=== PATIENT | female | born 1960 | race Caucasian/White ===

== ENCOUNTER 2023-04-01 19:25 | Emergency (ER) | payer BC, SELFPAY ==
[2023-04-01 19:45] VITALS: BP 144/107
[2023-04-01 20:09] LABS: % Basophils 0.2 % (0-2); % Eosinophils 0.5 % (0-6); % Immature Granulocytes 0.3 % (0-0.5); % Lymphocytes 8.2 % (20.5-51.1); % Monocytes 8.1 % (1.7-9.3); % Neutrophils 82.7 % (42.2-75.2); Absolute Eosinophils 0.1 10^3/uL (0-0.7); Absolute Lymphocytes 1.1 10^3/uL (1.2-3.4); Absolute Monocytes 1.1 10^3/uL (0.1-0.6); Absolute Neutrophils 10.9 10^3/uL (1.4-6.5); Hematocrit 45.6 % (37.0-47.0); Hemoglobin 14.9 g/dL (12.0-16.0); Mean Corp Hgb Conc. 32.7 g/dL (33.0-37.0); Mean Corpuscular Hgb 27.4 pg (27.0-31.0); Mean Platelet Volume 11.4 fL (7.4-10.4); Nucleated Red Blood Cells % 0 %; Platelet Count 250 10^3/uL (130-400); Red Blood Cell Count 5.43 10^6/uL (4.20-5.40); Red Cell Dist. Width 14.6 % (11.5-14.5); White Blood Cell Count 13.2 10^3/uL (4.8-10.8)
[2023-04-01 20:23] LABS: ALT (SGPT) 29 U/L (0-35); AST (SGOT) 26 U/L (14-36); Albumin 4.6 g/dl (3.5-5.0); Alkaline Phosphatase 122 U/L (38-126); Blood Urea Nitrogen 10 mg/dl (7-17); Calcium 9.4 mg/dl (8.4-10.2); Carbon Dioxide 19 mmol/L (22-30); Chloride 107 mmol/L (98-107); Glucose 118 mg/dl (70-99); Potassium 4.2 mmol/L (3.5-5.1); Sodium 136 mmol/L (135-145); Total Bilirubin 0.7 mg/dl (0.2-1.3); eGFR > 60.00
[2023-04-01] MEDS: PROTONIX IV 40 MG IV (22:21)
[2023-04-01] MEDS: ZOFRAN 4 MG IV (22:22)
[2023-04-01] MEDS: NSS 1000 IV (22:23)
--- NOTE | 2023-04-01 22:23 | ED.GENMED ---
History of Present Illness
General
Chief Complaint: Abdominal Symptoms
Source: patient
Exam Limitations: none
Time Seen by Provider: 04/01/23 21:34
Travel History
Have you had any contact with someone who has COVID-19?: Yes
Comment: self
Do you have any symptoms of coronavirus? Fever > 100 degrees, chills, cough, shortness of breath, sore throat, loss of taste or smell, muscle aches, or headache?: Yes
Symptoms:: cough
History of Present Illness
History of Present Illness:
This is a 63 year old female that comes in with c/o vomiting. States that she was diagnosed with COVID yesterday and given Paxlovid. States that she has not stopped vomiting since the took this. States that she has had chills, abd pain, nausea,
vomiting, diarrhea. Denies any fever, chest pain, SOB, headache, dizziness, urinary burning.
Past History
Past History
ED Past Medical History: HTN, Hyperthyroidism, Psychiatric (Anxiety) and Other (Ovarian cyst, UTI, Uterine Fibroid, Anemia, )
ED Past Surgical History: Cholecystectomy, Orthopedic (Left wrist ganglion), Tonsilectomy (and adenoids) and Other (left breast Biopsy)
Social History
Tobacco: Non-smoker
Alcohol: Occasional
Drug: None
Personal:
Living: with family
Employment: Employed
Review of Systems
Review of Systems
All Other Systems: ROS reviewed and negative except as documented in HPI and ROS
Constitutional: Reports chills; Denies fever
EENT: Reports no symptoms
Respiratory: Reports no symptoms; Denies cough or trouble breathing
Cardiac: Reports no symptoms; Denies chest pain
ABD/GI: Reports abdominal pain, nausea, vomiting and diarrhea
: Reports no symptoms; Denies dysuria, frequency or urgency
Musculoskeletal: Reports no symptoms
Skin: Reports no symptoms
Neurological: Reports no symptoms; Denies dizzy or headache
Psychiatric: Reports no symptoms
Phy Exam
General Physical Exam
General Presentation: no apparent distress
General age: appears stated age
General Skin: warm and dry
General Habitus: normal
General Mental: alert
General Hydration: dry mucous membranes
ENT Exam
ENT Exam: TM's normal, pharynx normal and neck supple
Eye Exam
Eye Exam: EOMI
Cardiovascular Exam
Cardiovascular Exam: regular rate/rhythm, no edema, no murmur and normal peripheral pulses
Pulmonary Exam
Pulmonary Exam: lungs clear, no respiratory distress, no rales, chest non tender, no crackles, no rhonchi, no wheezing and no cough
Gastrointestinal Exam
Gastrointestinal Exam: normal bowel sounds, soft, no organomegaly, no pulsatile mass, non distended and tender (Epigastric area with palpation)
Musculoskeletal Exam
Musculoskeletal Exam: full ROM and no edema
Skin Exam
Skin Exam: normal color, warm/dry, no rash and no petechia
Psychiatric Exam
Psychiatric Exam: normal mood/affect
Course
Orders/Labs/Results
Orders:
Orders
04/01/23 19:54
Complete Blood Count/With Diff Urgent
Comprehensive Metabolic Panel Urgent
Lipase Urgent
Comment: ADD ON
04/01/23 22:19
Ondansetron Injectable [Zofran] 4 mg .ROUTE .STK-MED ONE
Pantoprazole [Protonix IV] 40 mg .ROUTE .STK-MED ONE
04/01/23 22:21
Pantoprazole [Protonix IV] 40 mg IV NOW STA
04/01/23 22:22
0.9% Sodium Chloride 1000 ml [Nss] 1,000 ml IV BOLUS
Ondansetron Injectable [Zofran] 4 mg IV NOW STA
Ondansetron Injectable [Zofran] 4 mg IV NOW STA
Pantoprazole [Protonix IV] 40 mg IV NOW STA
04/01/23 22:23
Add On- LAB Urgent
Tests Added?: Lipase
0.9% Sodium Chloride 1000 ml [Nss] 1,000 ml IV BOLUS
Abnormal Lab Results
04/01/23
19:54
WBC 13.2 H 10^3/uL
(4.8-10.8)
RBC 5.43 H 10^6/uL
(4.20-5.40)
MCHC 32.7 L g/dL
(33.0-37.0)
RDW 14.6 H %
(11.5-14.5)
MPV 11.4 H fL
(7.4-10.4)
Absolute Neuts (auto) 10.9 H 10^3/uL
(1.4-6.5)
Absolute Lymphs (auto) 1.1 L 10^3/uL
(1.2-3.4)
Absolute Monos (auto) 1.1 H 10^3/uL
(0.1-0.6)
Neutrophils % 82.7 H %
(42.2-75.2)
Lymphocytes % 8.2 L %
(20.5-51.1)
Carbon Dioxide 19 L mmol/L
(22-30)
Creatinine 0.5 L mg/dL
(0.6-1.0)
Glucose 118 H mg/dl
(70-99)
04/01/23 19:54
04/01/23 19:54
Leukocytosis, carbon dioxide slightly low. Glucose nonfasting,
Vital Signs
Initial and Last Documented VS:
Initial Vital Signs
Temp Pulse Resp Pulse Ox
97.9 F 142 19 97
04/01/23 19:43 04/01/23 19:43 04/01/23 19:43 04/01/23 19:43
Last Documented Vital Signs
Temp Pulse Resp BP Pulse Ox
97.9 F 142 19 144/107 97
04/01/23 19:43 04/01/23 19:43 04/01/23 19:43 04/01/23 19:45 04/01/23 19:43
MDM/Problems Addressed
Differential Diagnosis Includes:
Reaction to Paxlovid
MDM/Problems Addressed:
This is a 63 year old female that comes in with c/o vomiting. States that she was diagnosed with COVID yesterday and that she was placed on Paxlovid. States that she has not stopped vomiting since she took the medication.
Will check labs, give patient IV fluids, Antiemetics. Will have patient stop the Paxlovid.
Back into see patient. patient states that she is feeling better. Will have patient increase her water intake. Will give her a prescription for Zofran and stay off the Paxlovid. Patient to return with any concerns.
Chronic conditions affecting care:
NA
Acute Exacerbation and/or Progression of Chronic Illness: Other (COVID)
*Pulse Oximetry
Patient hypoxic: no
*EKG
Interpreted by ED Provider?: NA
Rate: EKG- N/A
*Supply Specialist Interpretation
Rate: Supply Specialist- N/A
*Critical Care Note
Total Time (30-74mins, 75-104mins- exclusive of procedures): Not Applicable
ED Attending Note
-
Portions of this chart may have been created with voice recognition software.� Occasional wrong word or��sound alike� substitutions may have occurred due to the inherent limitations of voice recognition software.
Discharge Plan
Departure
Patient Disposition: Home (Routine Discharge)
Date of Disposition: 04/01/23
Time of Disposition: 23:53
Patient with high blood pressure during this ER visit?: Yes
Condition: Good
Covid-19: Not Applicable
Discharge Problem:
Nausea & vomiting
Instructions: Nausea and Vomiting, Adult (DC), BLOOD PRESSURE
Prescriptions:
New
ondansetron 4 mg tablet,disintegrating
4 mg PO Q8H PRN (Reason: nausea and vomiting) Qty: 7 0RF
No Action
naproxen sodium [Aleve] 220 MG tablet
2 tab PO DAILY
thyroid (pork) [[place] Thyroid] 60 MG tablet
60 mg PO DAILY
vitamin C-biotin [[id number] (vit C-biotin)] 1 EACH tablet,chewable
2 ea PO DAILY
Power Zinc
5 mg PO DAILY
Patient Comments:
with vit c 90 mg
Saline Nasal [place]
2 sprays inhalation DAILY
Vitamin B12:
3,000 mcg PO DAILY
Vitamin C:
74 mg PO DAILY
Vitamin D3:
75 mcg PO DAILY
ondansetron 4 mg tablet,disintegrating
4 mg PO Q8H PRN (Reason: nausea and vomiting) 3 Days Qty: 10 0RF
meclizine 25 mg tablet
25 mg PO TID PRN (Reason: dizziness) Qty: 20 0RF
Referrals:
Tanika Vargas MD [Family Provider] - As needed
Activity Restrictions/Additional Instructions:
As discussed, this was most likely due to the Paxlovid. Please to not take any further doses. Please increase your water intake to 8-8oz glasses daily. You have had a prescription for Zofran sent to your pharmacy. IF YOU HAVE ANY OTHER CONCERNS.
PLEASE RETURN TO THE EMERGNCY ROOM
[2023-04-01 22:30] VITALS: BP 129/89
[2023-04-01 22:57] LABS: Lipase 65 U/L (23-300)
[2023-04-01 23:00] VITALS: BP 130/78
== END 2023-04-02 00:08 | disposition home or self-care (01) ==
LOC: EMR 19:25
PROVIDERS: EMERGENCY PHYSICIAN Emergency Medicine; FAMILY PHYSICIAN Internal Medicine
DX: R11.2 Nausea with vomiting, unspecified (principal); I10 Essential (primary) hypertension; E05.90 Thyrotoxicosis, unspecified without thyrotoxic crisis or storm; F41.9 Anxiety disorder, unspecified; D64.9 Anemia, unspecified
CPT/HCPCS: 99283; 96374; 96375; 96361; 80053; 83690; 85025

== ENCOUNTER → 2024-09-17 18:44 | Outpatient (REF) | payer BC, SELFPAY | LOC: WDC 18:44 | PROVIDERS: ATTENDING PHYSICIAN Obstetrics & Gynecology Gynecology; FAMILY PHYSICIAN Internal Medicine | DX: Z12.31 Encounter for screening mammogram for malignant neoplasm of breast (principal) | CPT/HCPCS: 77063; 77067 ==

== ENCOUNTER → 2024-10-03 13:51 | Outpatient (REF) | payer BC, SELFPAY | LOC: MRI 3T 13:51 | PROVIDERS: ATTENDING PHYSICIAN Surgery; FAMILY PHYSICIAN Internal Medicine | DX: N60.92 Unspecified benign mammary dysplasia of left breast (principal); Z91.89 Other specified personal risk factors, not elsewhere classified | CPT/HCPCS: 77049; A9585 ==

== ENCOUNTER → 2024-11-26 09:44 | Outpatient (REF) | payer BC, SELFPAY | LOC: HWRCS 09:44 | PROVIDERS: ATTENDING PHYSICIAN Internal Medicine | DX: I10 Essential (primary) hypertension (principal); R94.31 Abnormal electrocardiogram [ECG] [EKG] | CPT/HCPCS: 93306 ==

== ENCOUNTER → 2025-01-14 20:50 | Outpatient (REF) | payer BC, SELFPAY | LOC: PAVMRI 20:50 | PROVIDERS: ATTENDING PHYSICIAN Physician Assistant; FAMILY PHYSICIAN Internal Medicine | DX: M79.605 Pain in left leg (principal) | CPT/HCPCS: 72148 ==